=== PATIENT | male | born 1955 | race Asian ===

== ENCOUNTER 2017-02-02 16:20 | Emergency (ER) | payer MEDICAID ==
[~2017-02-02] VITALS: Ht 170.2 cm; Wt 66.7 kg
[2017-02-02 16:46] VITALS: BP 156/93
== END 2017-02-02 17:15 | disposition home or self-care (01) ==
LOC: ED 16:20
DX: Z00.00 Encounter for general adult medical examination without abnormal findings (principal); H54.50 Low vision, one eye, unspecified eye; I10 Essential (primary) hypertension